=== PATIENT | male | born 2000 | race Caucasian/White ===

== ENCOUNTER 2023-05-01 03:02 | Emergency (ER) | payer OTHER, SELFPAY ==
[2023-05-01 03:11] VITALS: BP 140/108; PULSE 110; RESP 18; TEMP 36.7; O2SAT 99; BMI 33.9
--- NOTE | 2023-05-01 03:17 | XR_ITS ---
The [address] [address] Patient Name: ABBEY ROBISON MRN: [id number] date: 2000 Sex: M Assigned Patient Location: ER Current Patient Location: ED.MAIN Accession/Order Number: [id number] Exam Date: 05/01/2023 03:20 Report Date: 05/01/2023 04:08 At the request of: MISSY LAZO Procedure: XR ankle LT min 3V EXAM: XR ankle LT min 3V HISTORY: pain COMPARISON: None. TECHNIQUE: 3 views of the left ankle FINDINGS: No evidence of fracture. Joint spaces are maintained. Mild lateral soft tissue swelling. XR/XR ankle LT min 3V IMPRESSION: Mild lateral edema. No acute bony abnormality. Electronically authenticated by: ROBBIN ROYAL Date: 05/01/2023 04:08
--- NOTE | 2023-05-01 03:50 | ED_ITS ---
HPI - Extremity Injury (Lower) General Chief Complaint: Extremity Injury, Lower Stated Complaint: L LEG INJURY Time Seen by Provider: 05/01/23 03:50 Source: patient Mode of arrival: Wheelchair History of Present Illness HPI Narrative: at work and felt a pop left Achilles. now continues to have pain. Denies other injury or complaint MD complaint: Reports ankle injury Related Data Allergies Allergy/AdvReac Type Severity Reaction Status Date / Time No Known Drug Allergies Allergy Verified 05/01/23 03:10 Review of Systems ROS Status of ROS 10 or more systems reviewed and unremarkable except as noted in history and below [facility] Social History Smoking status: Current every day smoker Exam Constitutional Vital Signs, click to edit/add: Last Vital Signs Temp 98.1 F 05/01/23 03:11 Pulse 110 H 05/01/23 03:11 Resp 18 05/01/23 03:11 BP 140/108 H 05/01/23 03:11 Pulse Ox 99 05/01/23 03:11 O2 Del Method Room Air 05/01/23 03:11 Common normals: no apparent distress, average body habitus, oriented x3, no limitations, healthy appearing, alert and well nourished Eye Common normals: EOMs intact bilaterally and conjunctivae normal Respiratory Common normals: normal respiratory effort, no retractions and no use of accessory muscles Back & Pelvis Common normals: no CVA tenderness Extremity Right upper extremity: shoulder joint Other: left Achilles tenderness. no definite deformity Neuro Common normals: oriented x3, CN's II-XII intact bilaterally, moves all ext remities, no focal motor deficits and no sensory deficits noted Psych Appearance: grossly normal Course Vital Signs Vital signs: Vital Signs Temperature 98.1 F 05/01/23 03:11 Pulse Rate 110 H 05/01/23 03:11 Respiratory Rate 18 05/01/23 03:11 Blood Pressure 140/108 H 05/01/23 03:11 Pulse Oximetry 99 05/01/23 03:11 Oxygen Delivery Method Room Air 05/01/23 03:11 Temperature 98.1 F 05/01/23 03:11 Pulse Rate 110 H 05/01/23 03:11 Respiratory Rate 18 05/01/23 03:11 Blood Pressure 140/108 H 05/01/23 03:11 Pulse Oximetry 99 05/01/23 03:11 Oxygen Delivery Method Room Air 05/01/23 03:11 MDM - Extremity Injury (Lower) MDM Narrative Medical decision making narrative: patient presents with acute left Achilles injury. Injury occurred at work. possible partial tear. No definite deformity but does have focal tenderness. Placed in a Cam boot and discharged to follow up with Industrial medicine Discharge Plan Discharge Chief Complaint: Extremity Injury, Lower Clinical Impression: Injury of left Achilles tendon Patient Disposition: Home, Self-Care Instructions: Achilles Tendinitis (ED) Additional Instructions: follow up with Industrial medicine Stand Alone Forms: Portal Instructions Referrals: Physician,Non-Staff, MD [Primary Care Provider] - 1 week
--- NOTE | 2023-05-01 03:59 | PC.NURSE ---
patient bent over and heard snap in ankle. unable to bear weight.
--- NOTE | 2023-05-01 04:29 | PC.NURSE ---
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
== END 2023-05-01 04:48 | disposition home or self-care (01) ==
PROVIDERS: Emergency Provider Internal Medicine
DX: S86.002A Unspecified injury of left Achilles tendon, initial encounter (principal); X50.9XXA Other and unspecified overexertion or strenuous movements or postures, initial encounter
CPT/HCPCS: 73610; 99283